=== PATIENT | male | born 1945 | race Caucasian/White ===

== ENCOUNTER → 2018-03-02 08:16 | Outpatient (CLI) | payer MEDICARE, SELFPAY ==
--- NOTE | 2018-03-02 08:21 | AAAS_ITS ---
Reason For Study: AAA Aorta Measurements Aorta Doppler Measurements Proximal aorta measures2.24 x 3.02cm. in cross- Peak systolic flow velocities within the proximal sectional axis. aorta measure 93.9 cm/sec. Proximal aorta measures2.54cm. in longitudinal Peak systolic flow velocities within the mid axis. aorta measure 42.0 cm/sec. Mid aorta measures3.0 x 2.68cm. in cross- Peak systolic flow velocities within the distal sectional axis. aorta measure 65.7 cm/sec. Mid aorta measures2.78cm. in longitudinal axis. Distal aorta measures3.29 x 3.62cm. in cross- sectional axis. Distal aorta measures3.35cm. in longitudinal axis. Left Iliac Artery Left iliac artery measures .903 x 1.00 cm. in the cross-sectional axis. Left iliac artery measures .935 cm. in the longitudinal axis. Peak systolic velocity in the left iliac artery measures 73.9 cm/sec. Right Iliac Artery Right iliac artery measures 1.99 x 2.25 cm. in the cross-sectional axis. Right iliac artery measures 2.11 cm. in the longitudinal axis. Peak systolic velocity in the right iliac artery measures 61.1 cm/sec. Procedure The exam was diagnostic. Exam performed in department. Interpretation Summary Maximal aortic diameter mid aorta 3 x 2.68cm Maximal aortic diameter distal aorta 3.29 x 3.2 cm Criteria met for a small aortic aneurysm Calcific irregularities noted. Left common iliac 0.9 x 1cm Rigth common iliac 1.99 x 2.25cm consistent with iliac aneurysm. Normal aortic and iliac flow noted. Ordering Physician: Jose Francisco Merida Performed By: Williams Do RVT
--- NOTE | 2018-03-02 08:21 | ECHOD_ITS ---
Reason For Study: Dyspnea/SOB Procedure This was a 2D Doppler, Color Flow transthoracic echocardiogram. Exam performed in department. Left Ventricle Normal LV size. Mild global left ventricular systolic dysfunction. The estimated ejection fraction is 45 %. Transmitral diastolic flow velocities suggest mild (stage 1) diastolic dysfunction (reversed pattern). There is mild global hypokinesis of the left ventricle. Right Ventricle Mildly dilated right ventricle. Normal systolic function. Atria Normal left atrium. Normal right atrium. Mitral Valve Normal mitral valve. Mild-Moderate (1-2+) eccentric mitral valve insufficiency. Tricuspid Valve Normal tricuspid valve. Mild (1+) tricuspid valve insufficiency. Pulmonary artery systolic pressure is 31 mmHg. Aortic Valve Normal aortic valve. Trisinus/trileaflet aortic valve. Pulmonic Valve Normal pulmonic valve. Great Vessels Normal aortic root. The pulmonary artery is normal size. Inferior vena cava collapse with respiration. Pericardium/Pleural No pericardial effusion. MMode/2D Measurements & Calculations LVIDd: 5.1 cm IVSd: 1.1 cm Ao root diam: 3.8 cm LVIDs: 4.0 cm LVPWd: 0.99 cm LA dimension: 3.7 cm RVDd: 3.9 cm FS: 21.6 % LAV(MOD-bp): 36.4 ml LVAd ap4: 27.5 cm2 SV(MOD-sp4): 36.2 ml LAV(MOD-bp) Indexed: 19.2 ml/m2 EDV(MOD-sp4): 86.7 ml LAV(MOD-sp2): 37.4 ml EDV(sp4-el): 88.0 ml LAV(MOD-sp4): 35.4 ml LVAs ap4: 20.3 cm2 ESV(MOD-sp4): 50.5 ml ESV(sp4-el): 52.2 ml EF(MOD-sp4): 41.7 % EF(sp4-el): 40.6 % SV(sp4-el): 35.7 ml LA A4 area: 14.6 cm2 RA A4 area: 15.4 cm2 Time Measurements MV dec time: 0.26 sec Doppler Measurements & Calculations MV E max alban: 36.9 cm/sec Lat Peak E' Alban: 3.9 cm/sec Med Peak E' Alban: 4.5 cm/sec MV A max alban: 70.9 cm/sec E/E' lat: 9.4 E/E' med: 8.2 MV E/A: 0.52 MV V2 max: 98.4 cm/sec MV P1/2t max alban: 51.1 cm/sec Ao V2 max: 74.4 cm/sec MV max P.9 mmHg MV P1/2t: 77.3 msec Ao max P.2 mmHg MV V2 mean: 48.1 cm/sec MV dec slope: 193.8 cm/sec2 Ao V2 mean: 46.6 cm/sec MV mean P.1 mmHg MVA(P1/2t): 2.8 cm2 Ao mean P.0 mmHg MV V2 VTI: 21.0 cm Ao V2 VTI: 15.0 cm LV V1 max: 65.2 cm/sec PA V2 max: 69.0 cm/sec TR max alban: 266.3 cm/sec LV V1 max P.7 mmHg TR max P.4 mmHg LV V1 mean P.86 mmHg LV V1 mean: 43.5 cm/sec LV V1 VTI: 14.8 cm Interpretation Summary Normal LV size. Mild global left ventricular systolic dysfunction. The estimated ejection fraction is 45 %. Transmitral diastolic flow velocities suggest mild (stage 1) diastolic dysfunction (reversed pattern). Mild-Moderate (1-2+) eccentric mitral valve insufficiency. Pulmonary artery systolic pressure is 31 mmHg. Ordering Physician: Jose Francisco Merida Referring Physician: Jose Francisco Merida Performed By: Rex Logan RCS
== END ==
PROVIDERS: Family Provider Family Medicine; PCP Family Medicine; Visit Provider Internal Medicine Cardiovascular Disease
DX: E83.110 Hereditary hemochromatosis (principal); I71.4 Abdominal aortic aneurysm, without rupture; R06.02 Shortness of breath; Z13.89 Encounter for screening for other disorder
CPT/HCPCS: 76706; 93306

== ENCOUNTER → 2019-04-25 | Outpatient (CLI) | payer MEDICARE, SELFPAY ==
--- NOTE | 2019-04-25 09:42 | US_ITS ---
PROCEDURES: ULTRASOUND AORTA REASON FOR EXAM: Male, 73 years old. AAA without rupture TECHNIQUE: Ultrasound evaluation of the aorta was performed with real-time and static simmons-scale imaging. COMPARISON: AAA screening ultrasound 03/02/2018. FINDINGS: There is no elongation or tortuosity of the abdominal aorta. Aorta measures: Proximal 2.3 cm. Middle 3.1 cm. Distal 3.1 cm. Aorta measure transversely: Proximal 3.2 cm. Middle 3 cm. Distal 3 cm. 3.3 cm/s Right iliac artery measures: 3.4 cm. Right iliac artery measure transversely: 4.2 cm. Left iliac artery measures: 1.9 cm. Left iliac artery measure transversely: 2 cm. There is a demonstrated fusiform aneurysm measuring up to 3.3 x 3.1 cm which appears to contain noncalcified atheromatous plaque as well as atherosclerotic disease, not significantly changed from prior exam.. There is involvement of the aortic bifurcation. The right common iliac artery measures up to 4.2 x 3.4 cm, increased since prior exam where it measured 2 x 2.3 cm. There is questionable dilatation of the left iliac artery. US/Aorta IMPRESSION: Again seen is distal abdominal aortic aneurysm with involvement of the aortic bifurcation, similar to prior exam . There is increased aneurysmal dilatation of the right common iliac artery as described above. Electronically Signed: Olga Tubbs, at 12:17 EDT Tel , Service support ,
== END | disposition home or self-care (01) ==
LOC: US 09:39
PROVIDERS: Family Provider Family Medicine; PCP Family Medicine; Referring Provider Family Medicine; Visit Provider Family Medicine
DX: I71.4 Abdominal aortic aneurysm, without rupture (principal)
CPT/HCPCS: 76775

== ENCOUNTER → 2019-04-30 | Outpatient (CLI) | payer MEDICARE, SELFPAY ==
--- NOTE | 2019-04-30 08:41 | CT_ITS ---
STUDY: CTA OF THE ABDOMINAL AORTA AND BILATERAL LOWER EXTREMITIES REASON FOR EXAM: Male, 73 years old. Iliac aneurysm, increased in size, identified on ultrasound RADIATION DOSAGE (If Supplied By Facility): CTDIvol = ( 7.86 ) mGy, DLP = ( 1076.27 ) mGycm TECHNIQUE: Axial CT angiography multi-detector data acquisition was obtained from the to the following intravenous administration of 100ml IV Isovue 370. Axial images and MIP images were reconstructed from the axial data set. Post-processing of the angiographic images was performed, with multiplanar reformation and 3D reconstruction. Individualized dose optimization techniques were used for this CT. COMPARISON: Ultrasound aorta 04/25/2018, 03/02/2018 Descriptors of Narrowing: None (0%) Mild (< 50%) Moderate (50-70%) Severe (70-90%) Subtotal/Total Occlusion (90-100%) Non-Evaluable (technically non-diagnostic FINDINGS: Body wall soft tissues: No acute process. Osseous structures: No acute process. Minimal lumbar spondylosis. Slight scoliosis. Inferior chest: Bibasilar dependent atelectasis. Calcified pulmonary nodule at the right lung base of the sulcus consistent with old granulomatous disease. Normal distal esophagus. Cardiomegaly, mild, without pericardial effusion. Hepatobiliary: Normal. Pancreas: Mild ductal ectasia. Spleen: Normal. Adrenal glands: Normal. Urogenital: Benign bilateral renal cysts. Left renal inferior pole punctate nonobstructing calyceal calculus. Normal collecting systems, ureters. Urinary bladder decompressed, grossly normal. Pelvic floor and sidewalls and retroperitoneum: No mass or lymphadenopathy. Stomach: Normal. Small bowel and mesentery: Normal. Large bowel: Normal appendix. Sigmoid diverticulosis without diverticulitis. Normal rectum. Abdominopelvic vasculature: Fusiform infrarenal abdominal aortic aneurysm, bilobed morphology, proximal portion anterior-posterior 3.9 cm, transverse 3.75 cm. Distal portion anterior-posterior 4.5 cm, transverse 4.5 cm. 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 Nondilated left common iliac artery. Moderately severe aortoiliac atherosclerotic ossifications. No stenosis of the aorta, common iliac arteries or external iliac arteries. Moderate stenosis at the origin of the right internal iliac artery, and severe stenosis at the origin of the left internal iliac artery. Right lower extremity vasculature: RESIDENTIAL GLAZIER, mild plaque, no stenosis. DFA, minimal plaque at its origin, no stenosis. SFA, mild plaque proximally and in the distal 3rd. Occluded distal 3rd, with runoff of the middle 3rd of small intramuscular collaterals into the geniculate arteries. Popliteal, occluded P1 segment, reconstituted widely patent P2 and P3 segments via geniculate collaterals. Tibioperoneal trunk and trifurcation, mild plaque, no significant stenosis, patent three-vessel runoff to the ankle. Left lower extremity vasculature: RESIDENTIAL GLAZIER mild plaque, no stenosis. DFA, trace plaque, no stenosis. SFA, mild plaque, no stenosis. Popliteal, soft atheroma contributing to a short segment of 50% stenosis in the P1 segment. Mild plaque of the P2 and P3 segments without stenosis. Tibioperoneal trunk no plaque, no stenosis. Posterior tibial artery occluded just distal to its origin. Peroneal artery not visualized, presumably occluded at its origin. Anterior tibial artery, no plaque, robust single-vessel runoff to the ankle into the dorsalis pedis distribution. CT/CTA Abd w/Runoff W/WO Contrast IMPRESSION: 1. Bilobed morphology fusiform infrarenal abdominal aortic aneurysm, the proximal portion measuring 3.9 x 3.75 cm in the distal portion measuring 4.5 x 4.5 cm. 2. 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 3. Right SFA, occluded in the distal 3rd into the P1 segment of the popliteal, reconstitution of nonstenotic P2 and P3 segments of the popliteal artery via geniculate collaterals. 4. Right tibioperoneal trunk and trifurcation, widely patent three-vessel runoff to the ankle. 5. Left popliteal P1 segment 50% stenosis over a short segment. 6. Occluded peroneal and posterior tibial arteries on the left. Single-vessel runoff, anterior tibial artery, to the ankle. Electronically Signed: Janes Drummond MD at 10:28 EDT Tel , Service support ,
[2019-04-30 08:56] LABS: EGFR FINGERSTICK > 60.0000 mL/min (>60)
== END | disposition home or self-care (01) ==
LOC: CT 08:41
PROVIDERS: Family Provider Family Medicine; PCP Family Medicine; Referring Provider Surgery; Visit Provider Surgery
DX: I72.3 Aneurysm of iliac artery (principal)
CPT/HCPCS: 75635; Q9967